=== PATIENT | male | born 1950 | race African-American/Black ===

== ENCOUNTER → 2017-08-28 | Day surgery (SDC) | payer BC, MEDICARE ==
[~2017-08-28] MED LIST: ATROPINE SULFATE 1% OPHT SOLN 5 ML BTL ONE; DEXAMETHASONE SOD PHOS 4 MG/ML VIAL ONE; EPINEPHrine HCL (1:1000) 1 MG/ML VIAL ONE; FLURBIPROFEN 0.03% OPHT SOLN 2.5 ML BTL ONE; HYALURONIDASE/LIDOCAINE/BUPIVACAINE 5 ML SYR ONE; LACTATED RINGER'S 1000 ML INJ 1,000 ML ONE; NEOMYCIN/POLYMYXIN/DEXAMETHASONE OPTH OINT 3.5 GM TUBE ONE; PHENYLEPHRINE HCL 2.5 % OPTH SOLN 15 ML BTL ONE; PROPOFOL 200 MG/20 ML AMP IV ONE; SODIUM CHLORIDE 0.9% INJ 10 ML ONE; TETRACAINE 0.5% OPTH SOLN 15 ML BTL ONE; TRIAMCINOLONE ACETONIDE 40 MG/ML VIAL ONE; TROPICAMIDE 1% OPHT SOLN 15 ML BTL ONE; ceFAZolin INJ 1,000 MG VIAL ONE
--- NOTE | 2017-09-10 15:30 | MP ---
cc: Emanuel Rojas MD DATE OF OPERATION: 08/28/2017 PREOPERATIVE DIAGNOSIS: Proliferative diabetic retinopathy and tractional retinal detachment left eye. POSTOPERATIVE DIAGNOSIS: Proliferative diabetic retinopathy and tractional retinal detachment left eye. PROCEDURE: Pars plana vitrectomy, membrane pealing, endolaser left eye. ANESTHESIA: MAC SURGEON: Emanuel Rojas MD COMPLICATIONS: None PROCEDURE NOTE After informed consent was obtained, the patient was anesthetized with retrobulbar anesthesia in the preoperative area. He was then brought to the operating room, prepared and draped in the usual sterile fashion. A wire lid speculum was placed on the patient's right eye. 23-gauge vitrectomy cannulas were then placed in the lower temporal, supratemporal and superonasal quadrants 3-mm posterior to the corneoscleral limbus. Infusion cannula was placed lower temporally. Core vitrectomy was then performed. There were fibrovascular attachments throughout the posterior pole which were dissected free and the vitrectomies carried out as far as possible in the vitreous space. These membranes were then both delaminated and segmented and removed. After removal of all the membranes, endolaser was used to place panretinal photocoagulation. Careful indirect ophthalmoscopy with scleral depression was then performed. No peripheral breaks were noted. The three vitrectomy cannulas were then removed. Subconjunctival injections of dexamethasone and Ancef were placed, an atropine drop and Maxitrol ointment, patch and shield were then applied. The patient tolerated the procedure well. There were no complications. [facility]. Emanuel Rojas MD TAB/DL , 07:48 PM , 06:30 AM
== END | disposition home or self-care (01) ==
LOC: ESDC 11:32
PROVIDERS: ATTEND Ophthalmology Retina Specialist
DX: E11.3522 Type 2 diabetes mellitus with proliferative diabetic retinopathy with traction retinal detachment involving the macula, left eye (principal)
CPT/HCPCS: 00145; 67113; J0690; J1100; J7120; J0171; J3301